=== PATIENT | male | born 1975 | race Caucasian/White ===

== ENCOUNTER 2024-05-03 07:42 | Emergency (ER) | payer MEDICAID ==
[~2024-05-03] VITALS: Ht 177.8 cm; Wt 85.6 kg
--- NOTE | 2024-05-03 08:58 | DVH ---
ULTRASOUND OF SCROTUM AND CONTENTS. INDICATION: RIGHT TESTICULAR PAIN COMPARISON: None TECHNIQUE: Multiple real-time grayscale sonographic and color and duplex Doppler images of the scrotu m and its contents were obtained. FINDINGS: The right testicle measures 2.9 x 2.6 x 3.4 cm. The left testicle measures 3.2 x 2.4 x 3.0 cm. The right epididymal head measures 1.9 cm. There is increased flow to the right epididymis. There is increased flow to the right testicle. The left epididymal head measures 0.9 cm. Subsequent color and duplex Doppler interrogation of the testes demonstrated symmetric normal vascula r flow to both testicles. Small right hydrocele with thin septations. IMPRESSION: Findings suggestive of right orchitis and right epididymitis.
[2024-05-03 09:00] VITALS: BP 107/69; PULSE 108; RESP 18; TEMP 99.3; O2SAT 95
--- NOTE | 2024-05-03 09:42 | ED.PDOC ---
General HPI Comments 49 y/o M, presents to the ED for CC of testicular pain. Patient states, that he has been experiencing right testicular pain with associated symptoms of swelling x5days. Patient relays, that he was seen at [facility] to address symptoms; patient was said to have urolithiasis and that symptoms would improve once stone had passed. Patient endorses on, symptoms worsening with growing scrotal pain, right testicle doubling in size, and dysuria. Patient denies hematuria, penile discharge, penile sore, or urgency to urinate. No other symptoms or modifying factors at this time. Chief Complaint: Testicle Pain Time Seen by MD: 09:00 Primary Care Provider: NONE Reviewed notes: Nurses Notes, Medications, Allergies Allergies: Coded Allergies: NO KNOWN ALLERGIES (Unverified , 11/22/11) Home Meds No Active Prescriptions or Reported Meds Mode of Arrival: Ambulatory Severity: Mild Timing: Days Duration: Since onset Prehospital treatment: None Onset: Spontaneous Symptoms: Dysuria History of: Kidney stone Location male: R Scrotum Penile discharge: None Modifying factors: None associated signs and symptoms: Dysuria Past Medical History PAST MEDICAL HISTORY: Denies Surgical History: Denies all surgeries Family History Family History: Unobtainable Social History Smoker: Cigarettes, Less Than 1 Pack/Day Alcohol: Occasionally Drugs: Denies Drug Use Lives In: Home Constitutional: denies: chills, diaphoresis, fatigue, fever, malaise, sweats, weakness, others EENTM: denies: blurred vision, double vision, ear bleeding, ear discharge, ear drainage, ear pain, ear ringing, eye pain, eye redness, hearing loss, mouth pain, mouth swelling, nasal discharge, nose bleeding, nose congestion, nose pain, photophobia, tearing, throat pain, throat swelling, voice changes, others Respiratory: denies: cough, hemoptysis, orthopnea, SOB at rest, shortness of breath, SOB with excertion, stridor, wheezing, others Cardiovascular: denies: chest pain, dizzy spells, diaphoresis, Dyspnea on exertion, edema, irregular heart beat, left arm pain, lightheadedness, palpitations, PND, syncope, others Gastrointestinal: denies: abdomen distended, abdominal pain, blood streaked bowels, constipated, diarrhea, dysphagia, difficulty swallowing, hematemesis, melena, nausea, poor appetite, poor fluid intake, rectal bleeding, rectal pain, vomiting, others Genitourinary: reports: pain, testicle pain, testicle swelling; denies: burning, dysuria, flank pain, frequency, hematuria, incontinence, penile di scharge, penile sore, urgency, others Neurological: denies: dizziness, fainting, headache, left sided numbness, left sided weakness, numbness, paresthesia, pre-existing deficit, right sided numbness, right sided weakness, seizure, speech problems, tingling, tremors, weakness, others Musculoskeletal: denies: back pain, gout, joint pain, joint swelling, muscle pain, muscle stiffness, neck pain, others Integumetry: denies: bruises, change in color, change in hair/nails, dryness, laceration, lesions, lumps, rash, wounds, others Allergic/Immunocompromised: denies: Difficulty Healing, Frequent Infections, Hives, Itching, others Hematologic/Lymphatic: denies: anemia, blood clots, easy bleeding, easy bruising, swollen glands, others Endocrine: denies: excessive hunger, excessive sweating, excessive thirst, excessive urination, flushing, intolerance to cold, intolerance to heat, unexplained weight gain, unexplained weight loss, others Psychiatric: denies: anxiety, bipolar disorder, depression, hopeless, panic disorder, schizophrenia, sleepless, suicidal, others All Other Systems: Reviewed and Negative Physical Exam General Appearance: Moderate Distress HEENT: Normal ENT Inspection, Pharynx Normal, TMs Normal Neck: Full Range of Motion, Non-Tender, Normal, Normal Inspection Respiratory: Chest Non-Tender, Lungs Clear, No Accessory Muscle Use, No Respiratory Distress, Normal Breath Sounds Cardiovascular: No Edema, No JVD, No Murmur, No Gallop, Normal Peripheral Pulses, Regular Rate/Rhythm Breast Exam: Deferred Gastrointestinal: No Organomegaly, Non Tender, No Pulsatile Mass, Normal Bowel Sounds, Soft Genitalia: Deferred Pelvic: Deferred Rectal: Deferred Extremities: No calf tenderness, Normal capillary refill, Normal inspection, Normal range of motion, Non-tender, No pedal edema Musculoskeletal : Apperance: Normal Neurologic: Alert, journalism intern II-XII nml as Tested, No Motor Deficits, Normal Affect, Normal Mood, No Sensory Deficits Cerebellar Function: Normal Reflexes: Normal Skin: Dry, Normal Color, Warm Peripheral Pulses: 3+ Radial (R), 3+ Radial (L) Lymphatic: No Adenopathy Was a procedure done? Was a procedure done?: No Differential Diagnosis Kidney stone (Female): Musculoskeletal pain, Urinary obstruction, Urolithiasis Kidney stone (Male): Pyelonephritis, Urinary obstruction, Urolithiasis Penile/Scrotal: Prostatitis, Hydrocele, Testicular Torsion, Urolithiasis X-Ray, Labs, Meds, VS Vital Signs Date Time Temp Pulse Resp B/P (MAP) Pulse Ox O2 Delivery O2 Flow Rate FiO2 05/03/24 09:00 108 18 95 Room Air* 0 21 05/03/24 09:00 99.3 108 18 107/69 (82) 95 99.3 05/03/24 08:10 98.5 105 14 114/82 (93) 98 Current Medications Medications (Trade) Dose Ordered Sig/Julio Cesar Route Start Time Stop Time Status Last Admin Acetaminophen/ Hydrocodone Bitart ([place] 10/325MG Tab) 1 tab ONCE ONCE PO 05/03/24 10:00 05/03/24 10:01 DC 05/03/24 09:59 [place] [id number] Ph: [phone] DIAGNOSTIC IMAGING Diagnostic Imaging Report : [id number] Signed PATIENT: BERNARDO JARA ACCT: [id number] UNIT: [id number] : 1975 LOC: ER ROOM / BED: / AGE / SEX: 49 / M ADM STATUS: REG ER SERVICE [id number] ORDERING PHYSICIAN: ANGIE MEDINA MD PROCEDURE(s): TESUS - TESTICULAR ULTRASOUND REASON: RIGHT TESTICULAR PAIN ORDER NUMBER(s): [id number], ACCESSION NUMBER(s): [id number] ULTRASOUND OF SCROTUM AND CONTENTS. INDICATION: RIGHT TESTICULAR PAIN COMPARISON: None TECHNIQUE: Multiple real-time grayscale sonographic and color and duplex Doppler images of the scrotum and its contents were obtained. FINDINGS: The right testicle measures 2.9 x 2.6 x 3.4 cm. The left testicle measures 3.2 x 2.4 x 3.0 cm. The right epididymal head measures 1.9 cm. There is increased flow to the right epididymis. There is increased flow to the right testicle. The left epididymal head measures 0.9 cm. Subsequent color and duplex Doppler interrogation of the testes demonstrated symmetric normal vascular flow to both testicles. Small right hydrocele with thin septations. IMPRESSION: Findings suggestive of right orchitis and right epididymitis. ATED BY: MOR WOODS MD DICTATED DATE/TIME: 05/03/24856 SIGNED BY: MOR WOODS MD SIGNED DATE/TIME: 05/03/24856 CC: Patient alert. Complaining of testicular pain. Vitals stable. Answering questions. Ultrasound does show orchitis. He is ambulating. Was given [place]. Abdomen is soft nontender. Was given prescription of Motrin amoxicillin antibiotic. Explained to the patient. Was told to follow up with his primary care physician. Was told to come back if there is any problem. Time of 1ST Reevaluation: 09:30 Reevaluation 1ST: Improved Patient Education/Counseling: Diagnosis, Treatment Family Education/Counseling: No Family Present Departure 1 Departure Time of Disposition: 10:35 Impression: Primary Impression: Epididymitis Disposition: 01 HOME / SELF CARE / HOMELESS Condition: Good e-Prescriptions Ibuprofen Micronized (MOTRIN TABLET) 600 Mg Tb 600 MG PO TID PRN for 5 Days, #15 TAB *Black box warning-NSAIDS can increase risk of [place] & hypertension, GI irritation, ulceration, bleed, perferation. Do not use post cardiac surgery. Use short duration/lowest effective dose. Prov: ANGIE MEDINA MD 05/03/24 Amoxicillin Trihydrate (Amoxicillin) 500 Mg Cap 1 CAP PO TID for 10 Days, #30 CAP Prov: ANGIE MEDINA MD 05/03/24 Discharged With: Self Critical Care Note Critical Care Time?: No Stability Stability form required: No Heart Score Heart Score: Heart Score Response (Comments) Value History N/A 0 EKG N/A 0 Age N/A 0 Risk Factors N/A 0 Troponin N/A 0 Total 0 I personally scribed for ANGIE MEDINA MD ([email or web address]) on 05/03/24 at 09:42. Electronically submitted by Alaina Roberson ([email or web address]). I personally scribed for ANGIE MEDINA MD ([email or web address]) on 05/03/24 at 09:43. Electronically submitted by Alaina Roberson ([email or web address]). ANGIE MEDINA MD May 03, 2024 09:42
[2024-05-03] MEDS: HYDROcodone-ACET 10/325MG TAB PO ONE (09:59)
[2024-05-03] MEDS ORDERED: AMOX500C2 PO (10:36)
[2024-05-03] MEDS ORDERED: IBU600T PO (10:36)
== END 2024-05-03 10:45 | disposition home or self-care (01) ==
LOC: ER 07:42
DX: N45.1 Epididymitis (principal); F17.210 Nicotine dependence, cigarettes, uncomplicated; Z87.442 Personal history of urinary calculi
CPT/HCPCS: 76870

== ENCOUNTER 2024-07-26 18:18 | Emergency (ER) | payer MEDICAID ==
[~2024-07-26] VITALS: Ht 177.8 cm; Wt 83.6 kg
[~2024-07-26 18:18] MED LIST: AMOX500C2 PO; IBU600T PO
[2024-07-26 18:50] VITALS: BP 108/80; PULSE 107; RESP 20; TEMP 98.4; O2SAT 95
[2024-07-26] MEDS ORDERED: VALA-30 PO (20:28)
[2024-07-26] MEDS ORDERED: HYDROcodone-ACET 5/325MG TAB PO ONE (20:30)
[2024-07-26] MEDS ORDERED: ACYCLOVIR 400 MG TAB PO ONE (20:30)
[2024-07-26] MEDS ORDERED: [UNRECOGNIZED DRUG - CODE] XX (20:30)
[2024-07-26] MEDS ORDERED: prednisoLONE ACETATE 1% OPTH SUSP 5ML RIGHTEYE ONE (20:30)
[2024-07-26] MEDS ORDERED: PRED1SUS4 OP (20:32)
--- NOTE | 2024-07-26 20:33 | ED.PDOC ---
History of Present Illness HPI Comments Mr. 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 He also experienced a mild right-sided headache and photosensitivity but no fever or chills. He denies any direct trauma to the eye. The patient has no known allergies, past medical or surgical history, and no active prescriptions. He smokes less than one pack of cigarettes per day, drinks alcohol occasionally, and lives at home. He mentioned he had similar infections 4 and half years back on the left eye without any further complication. But due to repeated right-sided HSV keratitis and corneal opacification patient is due for a corneal transplant to reestablish is visual acuity. Patient was waiting with the PCP for an ophthalmology referral for further surgical management of right corneal transplant. 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 Past surgical history: Denies Family history: Noncontributory Social history: Lives at home, occasional occult denies drug use, intermittent smoking history. Allergy: Denies any allergy to drugs or dietary components. Chief Complaint: Eye Problem Time Seen by MD: 18:30 Primary Care Provider: ARACELIS Reviewed Notes: Nurses Notes, Medications, Allergies Allergies: Coded Allergies: NO KNOWN ALLERGIES (Unverified , 11/22/11) Home Meds Active Scripts Prednisolone Acetate (Ophth) (Pred Forte) 1 % Bozena, 1 % OP TID for 7 Days, #20 ML Prov:MJ GARRISON 07/26/24 Eye Patches (EYE PATCH/PADDED) Padded Mis, EA XX DAILY, #10 use daily one each on the right eye. Prov:MJ GARRISON 07/26/24 Valacyclovir HCl (Valacyclovir Hydrochlorid) 500 Mg Tab, 500 MG PO TID for 7 Days, #21 TAB Prov:MJ GARRISON 07/26/24 Ibuprofen Micronized (MOTRIN TABLET) 600 Mg Tb, 600 MG PO TID PRN for 5 Days, #15 TAB *Black box warning-NSAIDS can increase risk of [place] & hypertension, GI irritation, ulceration, bleed, perferation. Do not use post cardiac surgery. Use short duration/lowest effective dose. Prov:ANGIE MEDINA MD 05/03/24 Amoxicillin Trihydrate (Amoxicillin) 500 Mg Cap, 1 CAP PO TID for 10 Days, #30 CAP Prov:ANGIE MEDINA MD 05/03/24 Information Source: Patient Mode of Arrival: Ambulatory Severity: Moderate Timing: Days Prehospital treatment: Pain Meds Location: Right eye Quality Constant aching pain, Worsens With light, movement, pressure, Improves Rest, closing eyelids, pressure, pain medications, Associated signs and symptoms Constant tearing, redness, injection, photophobia, Past Medical History PAST MEDICAL HISTORY: Denies Past Medical History (Other): As above Surgical History: Denies all surgeries Surgical History (Other): As above Family History Family History: Unobtainable Family History (Other): As above Social History Smoker: Cigarettes, Less Than 1 Pack/Day Alcohol: Occasionally Drugs: Denies Drug Use Lives In: Home Constitutional: denies: chills, diaphoresis, fatigue, fever, malaise, sweats, weakness, others EENTM: reports: blurred vision, eye pain, eye redness, photophobia, tearing; denies: double vision, ear bleeding, ear discharge, ear drainage, ear pain, ear ringing, hearing loss, mouth pain, mouth swelling, nasal discharge, nose bleeding, nose congestion, nose pain, throat pain, throat swelling, voice changes, others Respiratory: denies: cough, hemoptysis, orthopnea, SOB at rest, shortness of breath, SOB with excertion, stridor, wheezing, others Cardiovascular: denies: chest pain, dizzy spells, diaphoresis, Dyspnea on exertion, edema, irregular heart beat, left arm pain, lightheadedness, palpitations, PND, syncope, others Gastrointestinal: denies: abdomen distended, abdominal pain, blood streaked bowels, constipated, diarrhea, dysphagia, difficulty swallowing, hematemesis, melena, nausea, poor appetite, poor fluid intake, rectal bleeding, rectal pain, vomiting, others Genitourinary: denies: burning, dysuria, flank pain, frequency, hematuria, incontinence, penile discharge, penile sore, pain, testicle pain, testicle swelling, urgency, others Neurological: denies: dizziness, fainting, headache, left sided numbness, left sided weakness, numbness, paresthesia, pre-existing deficit, right sided numb ness, right sided weakness, seizure, speech problems, tingling, tremors, weakness, others Musculoskeletal: denies: back pain, gout, joint pain, joint swelling, muscle pain, muscle stiffness, neck pain, others Integumetry: denies: bruises, change in color, change in hair/nails, dryness, laceration, lesions, lumps, rash, wounds, others Allergic/Immunocompromised: denies: Difficulty Healing, Frequent Infections, Hives, Itching, others Hematologic/Lymphatic: denies: anemia, blood clots, easy bleeding, easy bruising, swollen glands, others Endocrine: denies: excessive hunger, excessive sweating, excessive thirst, excessive urination, flushing, intolerance to cold, intolerance to heat, unexplained weight gain, unexplained weight loss, others Psychiatric: denies: anxiety, bipolar disorder, depression, hopeless, panic disorder, schizophrenia, sleepless, suicidal, others Physical Exam General Appearance: Moderate Distress HEENT: Cornea (R), Eye Lid (R), PERRL/EOMI, Photophobia, Other (Right eye conjunctivitis, tearing, photophobia, pain, ulceration of the scleral corneal junction, scleral injection, mild edema, no proptosis,) Neck: Full Range of Motion, Normal Inspection Respiratory: No Accessory Muscle Use, No Respiratory Distress, Normal Breath Sounds Cardiovascular: No Edema, No Murmur, No Gallop, Normal Peripheral Pulses, Regular Rate/Rhythm Breast Exam: Deferred Gastrointestinal: No Organomegaly, No Pulsatile Mass, Normal Bowel Sounds, Soft Genitalia: Deferred Pelvic: Deferred Rectal: Deferred Extremities: NOT DONE Neurologic: Alert, Headache, No Motor Deficits, Normal Affect, Normal Mood, No Sensory Deficits, Other (Right-sided eye opacity affecting the light reflex, did not try the corneal reflex due to the local irritation.) Cerebellar Function: Normal Reflexes: Normal Skin: Dry, Normal Color, Warm Lymphatic: NOT DONE Was a procedure done? Was a procedure done?: No EKG EKG : Comments No history of cardiac issues, unrelated to the a ED visit Differential Dx Considerations may include: Bacterial conjunctivitis, HSV keratitis, glaucoma, ocular trauma X-Ray, Labs, Meds, VS Vital Signs Date Time Temp Pulse Resp B/P (MAP) Pulse Ox O2 Delivery O2 Flow Rate FiO2 07/26/24 18:50 98.4 107 20 108/80 (89) 95 98.4 Images Reviewed?: Images reviewed and evaluated by me Time of 1ST Reevaluation: 19:36 Reevaluation 1ST: Unchanged (No change in extraocular muscles and examinations.) Reevaluation 2ND: Improved (Patient is given 1 dose of [place], local treatment and acyclovir in-hospital, patient is prescribed with outpatient 7 days of ophthalmic solution drop, hygiene counseling, eye pads, oral valacyclovir and counseled. Also referred to Dr. Templeton in the [facility] for further follow up. Patient is agreeable to the treatment, discharge home with the counseling to not do work on heavy machinery not to drive and not to touch eyes for high-risk of contamination. Discussed with Dr. Hameed. ) Consultation: PCP, Other (Ophthalmology) Patient Education/Counseling: Diagnosis, Treatment, Prognosis, Need For Follow Up Family Education/Counseling: No Family Present Sepsis Sepsis Reasesment Focused Exam Sepsis focused exam: focus exam completed, time: (Negative) Departure 1 Departure Time of Disposition: 22:04 Impression: Primary Impression: Herpes simplex keratitis Additional Impression: Conjunctivitis Qualified Codes: B30.9 - Viral conjunctivitis, unspecified Disposition: HOME / SELF CARE / HOMELESS Condition: Fair Referrals Ophthalmology as soon as possible outpatient butler. Referrals: HELENA DURBIN MD e-Prescriptions Prednisolone Acetate (Ophth) (Pred Forte) 1 % Bozena 1 % OP TID for 7 Days, #20 ML Prov: MJ GARRISON 07/26/24 Eye Patches (EYE PATCH/PADDED) Padded Mis EA XX DAILY, #10 use daily one each on the right eye. Prov: MJ GARRISON 07/26/24 Valacyclovir HCl (Valacyclovir Hydrochlorid) 500 Mg Tab 500 MG PO TID for 7 Days, #21 TAB Prov: MJ GARRISON 07/26/24 Discharged With: Self Critical Care Note Critical Care Time?: No Stability Stability form required: No Heart Score Heart Score: Heart Score Response (Comments) Value History N/A 0 EKG N/A 0 Age N/A 0 Risk Factors N/A 0 Troponin N/A 0 Total 0 MJ GARRISON RESIDENT Jul 26, 2024 20:33
== END 2024-07-26 22:26 | disposition left against medical advice (07) ==
LOC: ER 18:18
DX: B00.52 Herpesviral keratitis (principal); H10.9 Unspecified conjunctivitis; F17.210 Nicotine dependence, cigarettes, uncomplicated; Z79.624 Long term (current) use of inhibitors of nucleotide synthesis; Z79.899 Other long term (current) drug therapy